=== PATIENT | male | born 1970 | race Caucasian/White ===

== ENCOUNTER 2019-07-21 20:17 | Emergency (ER) | payer BC ==
[2019-07-21] MEDS ORDERED: IBUPROFEN 600 MG TABLET PO ONE (21:00)
[2019-07-21] MEDS ORDERED: CLINDAMYCIN HCL 150 MG CAPSULE PO ONE (21:02)
--- NOTE | 2019-07-21 21:07 | ER Document Report ---
ED Medical Screen (RME) - General Chief Complaint: Jaw Pain Stated Complaint: JAW PAIN Time Seen by Provider: 07/21/19 20:55 Primary Care Provider: SALINA LUGO [Primary Care Provider] - Follow up as needed Mode of Arrival: Ambulatory Information source: Patient Notes: Patient is an otherwise healthy 49-year-old male presenting to the emergency department chief complaint of right-sided jaw swelling. Patient reports that he has no dental pain. He states that there is swelling and tenderness on the outside of his jaw. Denies any history of abscess. States he has not taken any medication for symptoms. Exam: Swelling noted to right lower jaw, no obvious abscess or fluctuance noted. Patient will be sent to the back for full evaluation. I have greeted and performed a rapid initial assessment of this patient. A comprehensive ED assessment and evaluation of the patient, analysis of test results and completion of the medical decision making process will be conducted by additional ED providers. I have specifically instructed the patient or family members with the patient to immediately return to any nursing staff should anything change in the patient's condition or with their chief complaint. TRAVEL OUTSIDE OF THE [place] IN LAST 30 DAYS: No - Related Data Allergies/Adverse Reactions: No Known Allergies Allergy (Verified 07/21/19 20:35) Past Medical History - Social History Frequency of alcohol use: None Drug Abuse: None Physical Exam - Vital signs Vitals: Temp Pulse Resp BP Pulse Ox 98.2 F 75 16 116/72 98 07/21/19 20:31 07/21/19 20:31 07/21/19 20:31 07/21/19 20:31 07/21/19 20:31 Course - Vital Signs Vital signs: Temp Pulse Resp BP Pulse Ox 98.2 F 75 16 116/72 98 07/21/19 20:31 07/21/19 20:31 07/21/19 20:31 07/21/19 20:31 07/21/19 20:31 Doctor's Discharge - Discharge Referrals: SALINA LUGO [Primary Care Provider] - Follow up as needed
[2019-07-21] MEDS ORDERED: LIDOCAINE 2% VISCOUS SOLN 15 ML UDCUP PO ONE (21:57)
--- NOTE | 2019-07-21 22:02 | ER Document Report ---
HPI - HPI Time Seen by Provider: 07/21/19 20:55 Pain Level: 2 Notes: Patient is a 49-year-old male who presents to the ED complaining of Rt lower dental pain #30-31 x2-3 days. He began noticing swelling x1 day. Patient states that he is still able to eat and drink, but does have a decreased p.o. intake due to the pain. He has tried some [id number]-[id number] meds with minimal relief. No other concerns or complaints. Denies any headache, fever, head injury, neck pain, hoarseness, drooling, URI, sore throat, chest pain, palpitations, syncope, cough, shortness of breath, wheeze, dyspnea, abdominal pain, nausea/vomiting/diarrhea, urinary retention, dysuria, hematuria, or rash. - ROS Systems Reviewed and Negative: Yes All other systems reviewed and negative - CONSTITUTIONAL Constitutional: DENIES: Fever, Chills Past Medical History - General Information source: Patient - Social History Smoking Status: Current Every Day Smoker Frequency of alcohol use: None Drug Abuse: None Family History: Reviewed & Not Pertinent Patient has suicidal ideation: No Patient has homicidal ideation: No Vertical Provider Document - CONSTITUTIONAL Agree With Documented VS: Yes Notes: PHYSICAL EXAMINATION: GENERAL: Well-appearing, well-nourished and in no acute distress. HEAD: Atraumatic, normocephalic. EYES: Pupils equal round and reactive to light, extraocular movements intact, sclera anicteric, conjunctiva are normal. ENT: EAC clear b/l. TM's intact b/l without erythema, fluid, or perforation. Nares patent and without discharge. oropharynx clear without exudates. No tonsilar hypertrophy or erythema. Moist mucous membranes. No sinus tenderness. Uvula midline. No palatine shift. No tongue protrusion. No respiratory compromise. Mouth: Poor dentition. + mild decay and mild gingivitis. + small abscess that is already draining which I also expressed everything out that I could w/o any fluctuance remaining. + mild rt lower jaw swelling noted. + tenderness to tooth #30-31. NECK: Normal range of motion, supple without lymphadenopathy. No rigidity /meningismus. LUNGS: Breath sounds clear to auscultation bilaterally and equal. No wheezes rales or rhonchi. HEART: Regular rate and rhythm without murmurs, rubs, gallops. NEUROLOGICAL: Cranial nerves grossly intact. Normal speech, normal gait. Normal sensory, motor exams PSYCH: Normal mood, normal affect. SKIN: Warm, Dry, normal turgor, no rashes or lesions noted. - INFECTION CONTROL TRAVEL OUTSIDE OF THE [place] IN LAST 30 DAYS: No Course - Re-evaluation Re-evalutation: 07/21/19 22:00 Patient is an afebrile, well-hydrated, 49-year-old male who presents to the ED with dental pain/abscess. Vitals are acceptable. PE is otherwise unremarkable. No I&D, labs, or imaging warranted at this time based on H&P. Viscous lidocaine dispensed today. I will send him home with a prescription for cleocin, one dose given today. Low suspicion for any meningitis, sepsis, peritonsillar/pharyngeal abscess, respiratory compromise, Hugh's, temporal arteritis, or other emergent systemic condition at this time. Patient is aware this condition can change from initial presentation and he needs to monitor symptoms closely. Conservative measures otherwise for symptoms. Call to schedule an appointment with a dentist for further evaluation and management. Recheck with your PCM this week as well. Return to the ED with any worsening/concerning symptoms otherwise as reviewed in discharge. Patient is in agreement. - Vital Signs Vital signs: Temp Pulse Resp BP Pulse Ox 98.2 F 75 16 116/72 98 07/21/19 20:31 07/21/19 20:31 07/21/19 20:31 07/21/19 20:31 07/21/19 20:31 Discharge - Discharge Clinical Impression: Dental abscess Condition: Stable Disposition: HOME, SELF-CARE Instructions: Dental Infection or Abscess ([facility]) Additional Instructions: [place] and floss twice daily Maintain fluid intake Take antibiotics as directed Mouthwash, salt water gargles, peroxide rinse as needed Tylenol/ibuprofen as needed Recheck with PCM this week Call today/tomorrow and schedule an appointment with your dentist for further evaluation Return to the ED with any worsening symptoms and/or development of fever, headache, facial swelling, swelling of lips/tongue/throat, trouble swallowing, drooling, hoarseness, neck pain/stiffness, chest pain, palpitations, syncope, shortness of breath, trouble breathing, abdominal pain, n/v/d, numbness/tingling, or other worsening symptoms that are concerning to you. Prescriptions: Clindamycin HCl 300 mg PO QID #40 capsule Forms: Smoking Cessation Education Referrals: BRITTNEY,NO [NO LOCAL MD] - Follow up as needed [facility] [Provider Group] - Follow up as needed
[2019-07-21 23:00] VITALS: BP 116/79
== END 2019-07-21 23:02 | disposition home or self-care (01) ==
LOC: ER 20:17
DX: K04.7 Periapical abscess without sinus (principal); K08.89 Other specified disorders of teeth and supporting structures; R22.0 Localized swelling, mass and lump, head; R63.0 Anorexia; Z79.899 Other long term (current) drug therapy; F17.200 Nicotine dependence, unspecified, uncomplicated
CPT/HCPCS: 99283; J3490